=== PATIENT | male | born 1960 | race Two or more races ===

== ENCOUNTER 2024-12-21 08:24 | Outpatient (CLI) | payer OTHER ==
[2024-12-21 09:08] LABS: Hematocrit 41.2 % (41.0-53.0); Hemoglobin 14.4 g/dL (13.5-17.5); Mean Corpuscular Hemoglobin 31.6 pg (28.0-32.0); Mean Corpuscular Volume 90.3 fL (80.0-100.0); Nucleated Red Blood Cells % 0.0 %
[2024-12-21 09:13] LABS: Albumin 4.5 g/dL (3.2-4.8); Alkaline Phosphatase 74 U/L (46-116); Anion Gap 8 (5-15); BUN/Creatinine Ratio 9.7 (10.0-20.0); Blood Urea Nitrogen 9 mg/dL (9-23); Calcium 9.2 mg/dL (8.7-10.4); Carbon Dioxide 28 mmol/L (20-31); Glucose 85 mg/dL (74-106); Potassium 4.4 mmol/L (3.5-5.1); Prostate Specific Antigen 0.28 ng/mL (0.0-4.0); Sodium 143 mmol/L (136-145); Total Protein 6.5 g/dL (5.7-8.2); Triglycerides 56 mg/dL (< 150)
[2024-12-21 09:14] LABS: Cholesterol 79 mg/dL (< 200); HDL Cholesterol 40 mg/dL (40-59)
[2024-12-21 09:15] LABS: Urine Protein, UAD Negative (Negative)
[2024-12-21 09:17] LABS: Free T4 (Free Thyroxine) 1.06 ng/dL (0.89-1.76)
[2024-12-21 09:25] LABS: Iron 127.0 ug/dL (65-175)
[2024-12-21 09:28] LABS: Total Iron Binding Capacity 319.0 ug/dL (250-425)
[2024-12-21 09:31] LABS: Alanine Aminotransferase 52 U/L (7-40); Bilirubin, Total 1.9 mg/dL (0.2-1.0); Chloride 107 mmol/L (98-107)
[2024-12-21 10:24] LABS: Hepatitis A Total Antibody Positive (Negative)
[2024-12-21 10:44] LABS: Hepatitis B Surface Antigen Negative (Negative); Hepatitis C Antibody Negative (Negative)
[2024-12-21 10:56] LABS: Microalb/Creat Ratio, Urine 4.0
[2024-12-22 08:07] LABS: Hepatitis B Core Total Antibod Negative (Negative)
== END 2024-12-21 17:00 | disposition home or self-care (01) ==
LOC: EDSEX 08:24 → LAB 08:24
PROVIDERS: ATTEND Internal Medicine
DX: E11.9 Type 2 diabetes mellitus without complications (principal); N52.9 Male erectile dysfunction, unspecified
CPT/HCPCS: 36415; 80053; 80061; 81001; 82043; 82570; 83540; 83550; 84153; 84403; 84439; 84443; 85025; 85652; 86160; 86225; 86235; 86376; 86431; 86706; 86708; 86709; 86803; 87340

== ENCOUNTER 2025-01-04 14:42 | Outpatient (CLI) | payer OTHER ==
[2025-01-04 15:15] LABS: INR 1.19 (0.9-1.15); Partial Thromboplastin Time 26.5 SEC (24.5-34.5); Prothrombin Time 12.4 sec (9.3-11.8)
[2025-01-04 15:50] LABS: Bilirubin, Direct 0.5 mg/dL (<0.3); Bilirubin, Total 1.4 mg/dL (0.2-1.0)
== END 2025-01-04 17:00 | disposition home or self-care (01) ==
LOC: LAB 14:42
PROVIDERS: ATTEND Internal Medicine
DX: I82.401 Acute embolism and thrombosis of unspecified deep veins of right lower extremity (principal); R17 Unspecified jaundice
CPT/HCPCS: 36415; 82247; 82248; 85610; 85730

== ENCOUNTER 2025-01-09 11:38 | Outpatient (CLI) | payer OTHER ==
[2025-01-09 11:57] LABS: Hematocrit 41.3 % (41.0-53.0); Hemoglobin 14.8 g/dL (13.5-17.5); Mean Corpuscular Hemoglobin 32.1 pg (28.0-32.0); Mean Corpuscular Volume 89.8 fL (80.0-100.0); Nucleated Red Blood Cells % 0.1 %
[2025-01-09 12:10] LABS: INR 1.2 (0.9-1.15); Partial Thromboplastin Time 27.5 SEC (24.5-34.5); Prothrombin Time 12.5 sec (9.3-11.8)
[2025-01-09 12:13] LABS: Urine Protein, UAD TRACE (Negative)
[2025-01-09 12:14] LABS: Albumin 4.4 g/dL (3.2-4.8); Alkaline Phosphatase 75 U/L (46-116); Anion Gap 8 (5-15); BUN/Creatinine Ratio 11.1 (10.0-20.0); Blood Urea Nitrogen 11 mg/dL (9-23); Calcium 9.3 mg/dL (8.7-10.4); Carbon Dioxide 27 mmol/L (20-31); Chloride 105 mmol/L (98-107); Potassium 4.4 mmol/L (3.5-5.1); Sodium 140 mmol/L (136-145); Total Protein 6.9 g/dL (5.7-8.2)
[2025-01-09 12:18] LABS: Alanine Aminotransferase 53 U/L (7-40); Bilirubin, Total 3.4 mg/dL (0.2-1.0); Glucose 109 mg/dL (74-106)
== END 2025-01-09 17:00 | disposition home or self-care (01) ==
LOC: LAB 11:38
PROVIDERS: ATTEND Orthopaedic Surgery Adult Reconstructive Orthopaedic Surgery
DX: Z01.812 Encounter for preprocedural laboratory examination (principal); R79.1 Abnormal coagulation profile
CPT/HCPCS: 36415; 80053; 81001; 83036; 85025; 85610; 85730

== ENCOUNTER → 2025-02-07 | Outpatient (CLI) | payer OTHER ==
[~2025-02-07] MED LIST: APIX5TAB PO; ATOR10TA PO; CHOL1TAB28 PO; FERRCAP9 OR; INSLANTI SC; MAGN1CAP2 PO; METF-372 PO; MULT-1018 OR; OMEP20TA PO
[2025-02-07 16:26] LABS: Blood Urea Nitrogen < 5 mg/dL (9-23)
== END | disposition home or self-care (01) ==
LOC: LAB 15:46
PROVIDERS: ATTEND Internal Medicine
DX: E80.6 Other disorders of bilirubin metabolism (principal)
CPT/HCPCS: 36415; 82565; 84520

== ENCOUNTER 2025-05-01 13:17 | Outpatient (CLI) | payer OTHER ==
[2025-05-01 14:48] LABS: Hematocrit 46.9 % (41.0-53.0); Hemoglobin 16.3 g/dL (13.5-17.5); Mean Corpuscular Hemoglobin 31.6 pg (28.0-32.0); Mean Corpuscular Volume 90.9 fL (80.0-100.0); Nucleated Red Blood Cells % 1.0 %
== END 2025-05-01 17:00 | disposition home or self-care (01) ==
LOC: LAB 13:17
PROVIDERS: ATTEND Internal Medicine Hematology & Oncology
DX: R93.3 Abnormal findings on diagnostic imaging of other parts of digestive tract (principal)
CPT/HCPCS: 36415; 81240; 81241; 85025; 85301; 85302; 85305; 85306